=== PATIENT | male | born 1995 | race Two or more races ===

== ENCOUNTER 2017-01-10 19:29 | Emergency (ER) | payer OTHER ==
[2017-01-10 19:34] VITALS: RESP 18; TEMP 99
--- NOTE | 2017-01-10 19:42 | EDPHY ---
H & P Stated Complaint: left foot pain Time Seen by Provider: 01/10/17 19:41 HPI/ROS: Chief Complaint: Left foot pain HPI: The patient presents to the ED with complaints of pain to the dorsum of his left foot. The symptoms began after a 2 hour hike today. The patient reportedly was wearing hiking boots. It is atypical for him to hike of at long. The patient denies any history of fall or trauma. He denies any significant past medical history. The patient took no medications prior to arrival. REVIEW OF SYSTEMS: Neuro: no headache, numbness, weakness Musculoskeletal: as above Skin: no abrasion or lacerations Source: Patient Exam Limitations: No limitations - Personal History Current Tetanus/Diphtheria Vaccine: No Current Tetanus Diphtheria and Acellular Pertussis (TDAP): No - Medical/Surgical History Hx Asthma: No Hx Chronic Respiratory Disease: No Hx Diabetes: No Hx Cardiac Disease: No Hx Renal Disease: No Hx Cirrhosis: No Hx Alcoholism: No Hx HIV/AIDS: No Hx Splenectomy or Spleen Trauma: No Other PMH: no pmh - Social History Smoking Status: Never smoked - Physical Exam Exam: General Appearance: Alert, mild discomfort secondary to pain Neurological: Sensation intact to light touch throughout the left lower extremity Skin: No significant erythema, no fluctuance, no lymphangitis Musculoskeletal: Tenderness to palpation noted along the plantar aspect of the left foot primarily from the calcaneus to midfoot Constitutional: Initial Vital Signs Temperature (C) 37.2 C 01/10/17 19:30 Heart Rate 110 H 01/10/17 19:30 Respiratory Rate 18 01/10/17 19:30 Blood Pressure 132/84 H 01/10/17 19:30 O2 Sat (%) 94 01/10/17 19:30 O2 Delivery Mode Room Air Allergies/Adverse Reactions: No Known Allergies Allergy (Unverified 01/10/17 19:34) Home Medications: Medication Instructions Recorded NK [No Known Home Meds] 01/10/17 Medical Decision Making - Diagnostics Imaging Results: Left foot x-ray: Images reviewed by myself, negative for acute fracture. ED Course/Re-evaluation: The patient presents to the ED with a likely plantar fasciitis. Given the patient's tenderness a x-ray was ordered which demonstrates no evidence of an obvious stress fracture. The patient was given 600 mg of ibuprofen in the emergency department. The patient will be advised to ice his foot, to weightbear as tolerated, to continue NSAIDs and follow up with our on-call orthopedic surgeon for any unimproved symptoms. Differential Diagnosis: Differential diagnosis considered includes plantar fasciitis, stress fracture, cellulitis, gout - Data Points Medications Given: Discontinued Medications Ibuprofen (Motrin) 600 mg PO EDNOW ONE Stop: 01/10/17 19:49 Last Admin: 01/10/17 20:05 Dose: 600 mg Departure - Departure Disposition: Home, Routine, Self-Care Clinical Impression: Strain of foot, left Condition: Good Instructions: Musculoskeletal Pain (ED) Additional Instructions: 1. Take Ibuprofen or Motrin 600 mg by mouth three times a day. 2. Ice area of pain and swelling 30 minutes at a time 4 to 5 times a day for the next 3-5 days. 3. Weight bear as tolerated, crutches as needed. 4. Please follow up with the orthopedic surgeon you have been referred to for any unimproved symptoms. Referrals: Parveen Nagel MD [Medical Doctor] - As per Instructions
[2017-01-10] MEDS: IBUPROFEN 600 MG TAB PO ONE (20:05)
[2017-01-10 20:41] VITALS: BP 128/80; PULSE 100; O2SAT 95
== END 2017-01-10 20:39 | disposition home or self-care (01) ==
DX: S96.912A Strain of unspecified muscle and tendon at ankle and foot level, left foot, initial encounter (principal); X58.XXXA Exposure to other specified factors, initial encounter; Y99.8 Other external cause status; Y93.01 Activity, walking, marching and hiking